=== PATIENT | male | born 1980 | race Caucasian/White ===

== ENCOUNTER 2022-11-12 17:27 | Inpatient (IN) ==
[2022-11-12] MEDS ORDERED: SODIUM CHLORIDE 0.9% 1000ML 2,000 ML IV SCH (17:45)
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
[2022-11-12 18:00] LABS: Appearance Urine Clear (Clear); Bilirubin Urine Negative (Negative); Blood Urine Negative (Negative); Color Urine Yellow; Glucose Urine UA Negative (Negative); Ketones Urine Negative (Negative); Leukocyte Esterase Urine Negative (Negative); Nitrite Urine Negative (Negative); Protein Urine Negative (Negative); Specific Gravity Urine >= 1.030 (1.000-1.030); Urobilinogen Urine Negative (Negative); pH Urine 5.5 (4.5-7.5)
[2022-11-12 18:32] LABS: Base Excess VBG -1.1 mEq/L; HCO3 VBG 24 mmol/L; Oxygen Saturation VBG 91.1 %; PCO2 VBG 42 mmHg (38-50); PO2 VBG 61 mmHg; pH VBG 7.37 (7.36-7.41)
--- NOTE | 2022-11-12 18:45 | CT Scan Report ---
CT head/brain wo con CLINICAL HISTORY: ams Technique: Contiguous axial CT images of the head were acquired from the base of the skull to the susan alyssa without intravenous contrast administration. Images were viewed in brain, subdural and bone [facility]. Automated dose lowering techniques and/or adjustment according to patient size were utilized for this exam. Comparison: None available at the time of this dictation. Findings: There is a right lentiform nucleus hypodensity which is nonspecific but may represent an acute infarc t. Imaged portions of the paranasal sinuses and mastoid air cells are clear. The orbits appear normal. There are no acute fractures of the calvaria or scalp swelling. Impression: Right lentiform nucleus hypodensity may represent acute infarct. Correlation with prior imaging, if a vailable, is recommended. No evidence of intracranial bleeding. ACT 112: Negative or not required by law. Electronically signed by: Trenton Garcia M.D. 11/12/2022 6:44 PM
[2022-11-12 18:47] LABS: Basophils # (auto) 0.03 K/uL (0-0.2); Basophils % (auto) 0.8 %; Hematocrit (blood only) 36.9 % (42.0-52.0); Hemoglobin 12.9 g/dl (14.0-18.0); Immature Granulocytes # (auto) 0.01 K/uL (0.01-0.20); Immature Granulocytes % (auto) 0.3 %; Lymphocytes # (auto) 0.62 K/uL (1.2-3.4); Lymphocytes % (auto) 15.7 %; Mean Corpuscular Hemoglobin 31.8 pg (25.0-34.0); Mean Corpuscular Volume 90.9 fL (80.0-100.0); Mean Platelet Volume 9.5 fL (9.4-12.4); Monocytes % (auto) 7.6 %; Neutrophils # (auto) 2.99 K/uL (1.40-6.50); Neutrophils % (auto) 75.6 %; Platelet Count 120 K/uL (130-400); RDW Coefficient of Variation 11.6 % (11.5-14.5); RDW Standard Deviation 38.8 fL (36.4-46.3); Red Blood Count 4.06 M/uL (4.70-6.10); White Blood Count 3.95 K/ul (4.8-10.8)
[2022-11-12 18:55] LABS: Albumin Globulin Ratio 1.4 (0.9-2); Albumin Level 3.9 gm/dl (3.4-5.0); BUN Creatinine Ratio 13.8 (10-20); Bilirubin,Total 0.5 mg/dl (0.2-1.0); Calcium 8.3 mg/dl (8.6-10.3); Creatinine Clr Calc Pharmacy 132.5 ml/min; Est GFR (African American) 125.9 ml/min; Est GFR (Non-African American) 108.6 ml/min; Globulin 2.7 gm/dl (2.5-4.0); Potassium 4.3 mmol/L (3.5-5.1); Total Protein 6.6 gm/dl (6.0-8.3)
[2022-11-12 19:00] LABS: Acetaminophen < 3 ug/ml (10-30); Salicylate < 3.0 mg/dl (3.0-30)
[2022-11-12 20:28] LABS: Amphetamines+Metham, Urine Neg (Neg); Barbiturates, Urine Neg (Neg); Benzodiazepine, Urine Neg (Neg); Cocaine, Urine Neg (Neg); MDMA (Ecstacy), Urine Neg (Neg); Methadone, Urine Neg (Neg); Opiate, Urine Neg (Neg); Phencyclidine, Urine Neg (Neg)
[2022-11-12 21:15] LABS: Magnesium 1.7 mg/dl (1.7-2.4); Phosphorus 3.5 mg/dl (2.5-4.9)
--- NOTE | 2022-11-12 22:29 | History & Physical Report ---
Date of Service November 12, 2022 Assessment & Plan (1) Alcohol withdrawal: Plan: 42 M with history of anxiety who presented to the emergency room for altered mental status, concerns for poisoning. Now admitted to the hospital for stroke evaluation, alcohol withdrawal management. Alcohol withdrawal -Patient describes heavy alcohol consumption. -Serum ethyl alcohol level 163.1 on admission. No seizure, hallucination on admission. -Serum folate, vitamin B12, TSH all wnl. -Now s/p IV thiamine 500 mg x 1, initiation of D5 LR, IV magnesium repletion. * Admit to MedSurg telemetry * Neurology consult placed. Appreciate recommendations. * IV thiamine 100 mg daily x5-7. * P.o. folate 1 mg daily * Continue D5 LR at maintenance rate * Initiate AWSS protocol using IV lorazepam * Trend daily labs Acute CVA -Altered mental status on arrival; nonsensical/tangential speech on admission. -No slurred speech, facial droop, or focal weakness on exam. -Horizontal nystagmus, bilateral patellar and biceps hyperreflexia observed. -CT head: "Right lentiform nucleus hypodensity may represent acute infarct. Correlation with prior imaging, if available, is recommended. No evidence of intracranial bleeding." -MRI brain negative for acute intracranial pathology. -MRA head/neck negative for intravascular stenosis or occlusion. -Now s/p aspirin 325 mg x 1, IV magnesium repletion x2 g on admission. * Neurology consult placed as above. Again appreciate recommendations. * Aspirin 81 mg, clopidogrel 75 mg x 21 days. Continue aspirin x3 months. * Neuro checks q4h * Trend electrolytes. Maintain magnesium >2, K+ >4 Hyponatremia -Na 128 on admission. No gap. Euvolemic on exam. Mildly symptomatic. * Serum osmolality, urine osmolality, urine sodium labs pending. * D5 LR as above. Anxiety -Chronically managed on buspirone, citalopram. * Home meds held on admission * AWSS with IV lorazepam as above Code: Full code Dispo: Med-Surg telemetry FEN/GI: D5 LR, regular diet DVT Prophylaxis: ASA/Plavix PT/OT: Consults: Neurology (2) Alcohol intoxication: (3) Acute CVA (cerebrovascular accident): (4) Anxiety disorder: History of Present Illness Primary Care Provider: DO Diogenes Isbell is a 42-year-old man with a history of anxiety and erectile dysfunction, who presented to the emergency room via ambulance for altered mental status. Patient initially stated that he thought he had been poisoned. He had stated that 2 adults and a child had showed up at his door yesterday because their car broke down. He reported inviting them in and sharing some food with him (pizza). He is unable to recall the exact time when this happened. Spoke to patient's father, who denies the encounter. Per father, patient called him describing 3 people in his apartment but that there was no one at his son's apartment. He also mentioned that his son's speech was intelligible but nonsensical. He then called an ambulance to his son's apartment, who then brought him to the hospital. In the emergency room, vitals were notable for tachycardia to the 110s-130s. WBC 3.95, platelet count 120, sodium of 128. UA was negative but urine tox positive for THC, ethyl alcohol (163.1). Head CT showed right lentiform nucleus hypodensity possibly representing an acute infarct. MRI brain showed no evidence of acute intracranial pathology, mild nonspecific white matter changes. MRA head/neck both negative for stenosis or obstruction. He received a liter bolus NS in the ED and was recommended for admission for continued management. On admission, patient is drowsy but alert and oriented. He endorses HPI but now states that he is not sure if that ever happened after talking to his father. He is unable to describe the aforementioned strangers in any detail. He reports alcohol consumption about 4-6 times a week. When asked how much he drinks per session, he replies "anywhere between a 6-pack and a 36 pack [of beer]." Last drink was today around noon. He reports a slight headache and hand tremors but denies vision changes, nausea, abdominal pain, chest pain, or melena. Allergies Allergy/AdvReac Type Severity Reaction Status Date / Time mesalamine [From [facility]] Allergy unknomn Verified 11/12/22 19:36 Home Medications Medication Instructions Recorded Confirmed Type multivitamin 1 tab PO DAILY 03/06/19 11/12/22 History tadalafil 5 mg tablet (Cialis) 5 mg PO DAILY #90 tabs 09/12/22 11/12/22 Rx buspirone 5 mg tablet 5 mg PO BID PRN anxiety #90 tabs 10/16/22 11/12/22 Rx citalopram 20 mg tablet 20 mg PO DAILY #90 tabs 10/16/22 11/12/22 Rx cyanocobalamin (vitamin B-12) 1,000 mcg PO DAILY #30 tabs 11/14/22 Rx 1,000 mcg tablet folic acid 1 mg tablet 1 mg PO DAILY #30 tabs 11/14/22 Rx thiamine HCl (vitamin B1) 100 mg 100 mg PO DAILY #30 tabs 11/14/22 Rx tablet Past Med/Surg History Medical History Acquired deviated nasal septum Acute sinusitis Acute upper respiratory infection Anxiety disorder Backache Cervicalgia Erectile dysfunction Finger injury Hypersomnolence disorder Insomnia Irritable bowel syndrome Left otitis media Nocturia Penile abnormality Shoulder pain Snoring Tick bite of hip Surgical History History of colonoscopy History of esophagogastroduodenoscopy (EGD) Family History Father Dyslipidemia Colon, diverticulosis Denies family history of Ovarian cancer Prostate cancer Breast cancer Colorectal cancer Social History Smoking Status: Never smoker Second Hand Exposure: No; Hx Alcohol Use: Yes Alcohol type: beer Hx Substance Use: Yes Last Used Substance: Hours (ago) Preferred Language: Yakut Communication Ability: Effective Hearing Ability: Normal Clinical Programmer Required: No Beliefs That Will Affect Care: None marital status: Single Current Living Situation: Alone Feels Safe at Home: Yes Seatbelt Use: always Assistive Devices: None Review of Systems Review of Systems: All systems reviewed & are unremarkable except as noted in HPI & below Physical Exam Physical Exam: General: Drowsy-appearing, alert man in no acute distress. HEENT: Normocephalic, atraumatic. Dilated pupils. EOM intact. Horizontal nyst agmus. Neck: Supple. No lymphadenopathy. Normal ROM. CV: Tachycardic, regular rhythm. Normal S1 and S2. No murmurs gallops or rubs. Respiratory: Normal respiratory effort. Lungs clear to auscultation bilaterally. No crackles, rhonchi, or wheezes. Abdomen: Soft, nondistended abdomen. No bruits heard on auscultation. No tenderness to deep palpation. No guarding or rebound. Extremities: Capillary refill <2 sec. 2+ dp equal bilaterally. No pedal edema. Neuro: Alert and oriented x3. CN II-XII intact bilaterally. 5/5 strength at UE, LE joints bilaterally. 3+ DTR at patellar, biceps tendons bilaterally. Skin: Clean, dry, and intact. No rashes, bruises, or erythema. Results & Data Results & Data Vital Signs (Past 12 Hours) Vital Signs Temp Pulse Resp BP Pulse Ox O2 Del Method 11/12/22 18:30 122 H 18 122/69 94 11/12/22 17:39 36.8 C 129 H 18 123/94 94 Room Air 11/12/22 17:32 131 H Supervising Physician Co-Signing Physician Notes Attending addendum: I have physically seen this patient, have supervised the medical residents activities, and agree with the H&P unless as otherwise noted. Assessment and Plan: Alcohol withdrawal- Alcohol level 163.1 on admission AWSS protocol with IV Ativan Thiamine 100 mg IV daily Folate 1 mg IV daily Lactated Ringer's at 100 mils an hour Serial CBC with differential, chemistry profile Alcohol cessation counseling Acute CVA- CT head with right lentiform nucleus hypodensity that may represent an acute infarct Symptoms may be due to CVA or alcohol withdrawal Ordered MRI brain which was negative for acute lesion MRA head and neck negative for significant stenosis Aspirin and clopidogrel as noted Hyponatremia- Check serum osmolality, urine osmolality and urine sodium as noted IV fluids as noted above Anxiety- Continue citalopram and buspirone IV lorazepam for AWSS protocol Remaining orders and notations as noted Resident Activity Tracking Resident Involvement: Resident Care Provided Care Provided: Adult Hospital Medicine (2) Alcohol intoxication Complication of substance-induced condition: with unspecified complication Qualified Code(s): F10.929 - Alcohol use, unspecified with intoxication, unspecified
[2022-11-12] MEDS ORDERED: THIAMINE HCL 500 MG in SODIUM CHLORIDE 0.9% 50 ML IV STA (22:31)
[2022-11-12] MEDS ORDERED: GADOBUTROL 65ML VIAL IV ONE (23:54)
--- NOTE | 2022-11-13 00:30 | Magnetic Resonance Report ---
Exam(s): MRA NECK W/WO Contrast IV Amt: 10cc gadavist EXAM: MR Angiography Neck Without and With Intravenous Contrast CLINICAL HISTORY: Reason for exam: cva. TECHNIQUE: Magnetic resonance angiography images of the neck without and with intravenous contrast. CONTRAST: Patient received 10cc gadavist of IV contrast COMPARISON: No relevant prior studies available. FINDINGS: Right common carotid artery: Unremarkable. No significant stenosis. No dissection or occlusion. Right internal carotid artery: Unremarkable. Extracranial segment is patent with no significant stenosis. No dissection or occlusion. Right external carotid artery: Unremarkable. No occlusion. Right vertebral artery: Unremarkable. No significant stenosis. No dissection or occlusion. Left common carotid artery: Unremarkable. No significant stenosis. No dissection or occlusion. Left internal carotid artery: Unremarkable. Extracranial segment is patent with no significant stenosis. No dissection or occlusion. Left external carotid artery: Unremarkable. No occlusion. Left vertebral artery: Unremarkable. No significant stenosis. No dissection or occlusion. Soft tissues: Unremarkable as visualized. CAROTID STENOSIS REFERENCE USING NASCET CRITERIA: % ICA stenosis = (1 - narrowest ICA diameter/diameter of distal cervical ICA) x 100. Mild - <50% stenosis. Moderate - 50-69% stenosis. Severe - 70-94% stenosis. Near occlusion - 95-99% stenosis. Occluded - 100% stenosis. IMPRESSION: Negative MRA of the neck. Electronically signed by: Paris Ricketts MD 11/13/22 00:29 AM
[2022-11-13] MEDS: D5W AND LACTATED RINGERS 1,000 ML IV SCH ×4 (00:33→22:01)
[2022-11-13] MEDS: MAGNESIUM SULFATE / D5W 1 GM/100 ML BAG IV SCH ×2 (00:33→02:49)
--- NOTE | 2022-11-13 00:33 | Magnetic Resonance Report ---
Exam(s): MRA HEAD Without Contrast EXAM: MR Angiography Head Without Intravenous Contrast CLINICAL HISTORY: Reason for exam: cva. TECHNIQUE: Magnetic resonance angiography images of the head without intravenous contrast. COMPARISON: No relevant prior studies available. FINDINGS: Right internal carotid artery: No acute findings. Intracranial segment is patent with no significant stenosis. No aneurysm. Right anterior cerebral artery: Unremarkable. No occlusion or significant stenosis. No aneurysm. Right middle cerebral artery: Unremarkable. No occlusion or significant stenosis. No aneurysm. Right posterior cerebral artery: Unremarkable. No occlusion or significant stenosis. No aneurysm. Right vertebral artery: Unremarkable as visualized. Left internal carotid artery: No acute findings. Intracranial segment is patent with no significant stenosis. No aneurysm. Left anterior cerebral artery: Unremarkable. No occlusion or significant stenosis. No aneurysm. Left middle cerebral artery: Unremarkable. No occlusion or significant stenosis. No aneurysm. Left posterior cerebral artery: Unremarkable. No occlusion or significant stenosis. No aneurysm. Left vertebral artery: Unremarkable as visualized. Basilar artery: Unremarkable. No occlusion or significant stenosis. No aneurysm. IMPRESSION: Negative MRA of the head. Electronically signed by: Paris Ricketts MD 11/13/22 00:32 AM
--- NOTE | 2022-11-13 00:38 | Magnetic Resonance Report ---
Exam(s): MRI HEAD W/WO Contrast IV Amt: 10cc gadavist EXAM: MR Head Without and With Intravenous Contrast CLINICAL HISTORY: Reason for exam: cva. TECHNIQUE: Magnetic resonance images of the head/brain without and with intravenous contrast in multiple planes. CONTRAST: Patient received 10cc gadavist of IV contrast COMPARISON: Comparison made to prior noncontrast head CT from November 12, 2022. FINDINGS: Brain: Mild nonspecific white matter changes. No mass. No hemorrhage. No acute infarct. Bilateral choroidal fissure cyst. Normal enhancement. Ventricles: Unremarkable. No ventriculomegaly. Bones/joints: Unremarkable. Sinuses: Chronic ethmoid sinusitis. No acute sinusitis. Mastoid air cells: Unremarkable as visualized. No mastoid effusion. Orbits: Unremarkable as visualized. IMPRESSION: No evidence of acute intracranial pathology. Mild nonspecific white matter changes. Electronically signed by: Paris Ricketts MD 11/13/22 00:37 AM
[2022-11-13] MEDS ORDERED: LORazepam 2 MG/1 ML VIAL IV PRN ×3 (00:39)
[2022-11-13] MEDS ORDERED: Ativan IV Alcohol Withdrawal--Active Protocol IV PRN (00:39)
[2022-11-13] MEDS ORDERED: LORazepam 2 MG/1 ML VIAL IV STA (01:09)
[2022-11-13] MEDS ORDERED: ASPIRIN 325 MG ECTAB PO STA (02:42)
[2022-11-13 06:18] LABS: Basophils # (auto) 0.03 K/uL (0-0.2); Basophils % (auto) 0.6 %; Eosinophils # (auto) 0.05 K/uL (0-0.50); Eosinophils % (auto) 0.9 %; Hematocrit (blood only) 37.8 % (42.0-52.0); Hemoglobin 13.3 g/dl (14.0-18.0); Immature Granulocytes # (auto) 0.02 K/uL (0.01-0.20); Immature Granulocytes % (auto) 0.4 %; Lymphocytes # (auto) 1.78 K/uL (1.2-3.4); Lymphocytes % (auto) 32.7 %; Mean Corpuscular Hemoglobin 31.8 pg (25.0-34.0); Mean Corpuscular Hgb Conc 35.2 g/dL (32.0-36.0); Mean Corpuscular Volume 90.4 fL (80.0-100.0); Mean Platelet Volume 9.7 fL (9.4-12.4); Monocytes # (auto) 0.63 K/uL (0.11-0.59); Monocytes % (auto) 11.6 %; Neutrophils # (auto) 2.94 K/uL (1.40-6.50); Neutrophils % (auto) 53.8 %; Platelet Count 134 K/uL (130-400); RDW Coefficient of Variation 11.7 % (11.5-14.5); RDW Standard Deviation 38.6 fL (36.4-46.3); Red Blood Count 4.18 M/uL (4.70-6.10); White Blood Count 5.45 K/ul (4.8-10.8)
[2022-11-13 06:28] LABS: BUN Creatinine Ratio 12.2 (10-20); Calcium 8.4 mg/dl (8.6-10.3); Chol HDL Ratio 3.4 (0-5); Creatinine Clr Calc Pharmacy 142.1 ml/min; Est GFR (Non-African American) 112.2 ml/min; Magnesium 2.7 mg/dl (1.7-2.4); Potassium 3.6 mmol/L (3.5-5.1)
--- NOTE | 2022-11-13 07:19 | Hospitalist Progress Note ---
Date of Service November 13, 2022 Assessment & Plan (1) Alcohol withdrawal: Plan: 42 M with history of anxiety who presented to the emergency room for altered mental status, concerns for poisoning. Now admitted to the hospital for stroke evaluation, alcohol withdrawal management. Alcohol withdrawal -Patient describes heavy alcohol consumption. -Serum ethyl alcohol level 163.1 on admission. No seizure, hallucination on admission. -Serum folate, vitamin B12, TSH all wnl. -Now s/p IV thiamine 500 mg x 1, initiation of D5 LR, IV magnesium repletion. * MedSurg telemetry * IV thiamine 100 mg daily x5-7. * P.o. folate 1 mg daily * Discontinue IV fluids as patient should be able to tolerate p.o. intake * Continue AWSS protocol using IV lorazepam * Trend daily labs -Likely discharge tomorrow if AWSS score remains low and consistent with today's numbers. Anxiety -Continue home medications -We will ask nurse navigator to help him find a therapist in the outpatient setting -Do not feel the patient is a harm to himself or others -May benefit from a as needed anxiety medication that is not a benzodiazepine such as hydroxyzine Acute CVA, inaccurate diagnosis, problem has been deleted -MRI of brain negative for acute intracranial pathology -Premature diagnosis of acute CVA was made when hypodensity of brain was found on CT prior to results of MRI returning. -No focal deficits noted on examination today that would be consistent with a stroke as well -Canceled neurology consult. Hyponatremia, resolved -Na 128 on admission. No gap. Euvolemic on exam. Mildly symptomatic. * Sodium at 136 this morning, consider resolved Anxiety -Chronically managed on buspirone, citalopram. * Home meds held on admission * AWSS with IV lorazepam as above Code: Full code Dispo: Med-Surg telemetry FEN/GI: regular diet DVT Prophylaxis: ASA/Plavix, low risk (2) Alcohol intoxication: (3) Anxiety disorder: Admission and Anticipated Discharge Date Admission Date: November 12, 2022 Supervising Physician Co-Signing Physician Notes I personally examined the patient and verified all dal[place] points of history and exam, discussed case, and agree with decision making with Dr Alvarenga Feeling okay. No longer hallucinating or confused. Is a bit tremulousnotes that is probably been going on for the last week or so. Alcohol intake largely in response to stress. Stress generally anxiety overall, but worse due to divorce, custody, and financial issues. Vitals noted, in general he is awake and alert pleasant no distress. HEENT normocephalic atraumatic mucous membranes moist. Breathing unlabored no accessory muscle use good effort. Skin shows no rashes no pallor or icterus. Neuro without focal deficits. Mild fine tremor. Anxiety/alcohol abuse/possible withdrawal/toxic encephalopathy (multifactorial between alcohol, marijuana, lack of sleep, stress, dehydration)seems overall to be improving. Hyponatremia which was likely a bit dehydration, and actually a bit dilution effect from beer (somewhat of a beer Poto vero mechanism) improved, although I doubt it was much of a contributor in his altered mental status since it was mild. Extensive discussion on anxiety management. Follow into tomorrow given he is somewhat tremuloushis history makes it sound like this may be more of a subacute issue, but certainly his alcohol consumption and recent hallucinationswant to ensure that he is not heading in the wrong direction with withdrawal/delirium tremens prior to discharge to home. Replace thiamine and folate, B12 is somewhat lowreplace p.o. as well. Subjective Patient seen at bedside this morning. No acute events reported overnight. Patient is alert and oriented x3 and is aware of the situation that brought him to the hospital. Remembers hallucinations as well as how he felt yesterday evening. Patient has good insight on his alcohol use and admits to having a problem for the past 2 to 3 years in relationship to COVID, divorce, and finances. He has chronic uncontrolled anxiety and after he was cut off from lorazepam, he turned to alcohol as a solution. Patient is in the contemplative stage of quitting and would like to move forward with this. Otherwise patient has no other complaints at this time, overall feeling well. Review of Systems Review of Systems: Per HPI Physical Exam Constitutional: WD/WN, vitals as above Eyes: + anicteric sclerae Neck: normal visual inspection Respiratory: normal respiratory effort, lungs clear to auscultation Cardiovascular: RRR, no murmur, no edema Gastrointestinal (Abdomen): normal bowel sounds, soft, nontender, no hepatosplenomegaly Musculoskeletal: Head/Neck/Chest: normocephalic and head atraumatic Skin: no rashes, warm and dry Neurologic: CN's II-XI intact bilaterally and moves all extremities Motor /Sensory: + tremor (resting, b/l hands) Cranial Nerves: PERRL Psychiatric: A+Ox3, euthymic affect Results & Data Results & Data Vital Signs (Past 12 Hours) Vital Signs Temp Pulse Pulse Resp BP Pulse Ox O2 Del Method 11/13/22 07:00 80 11/13/22 01:04 96 H 11/13/22 00:03 37.0 C 118 H 20 127/85 94 Room Air (2) Alcohol intoxication Complication of substance-induced condition: with unspecified complication Qualified Code(s): F10.929 - Alcohol use, unspecified with intoxication, unspecified
[2022-11-13] MEDS: ASPIRIN 81 MG ECTAB PO SCH (07:57)
[2022-11-13] MEDS: CLOPIDOGREL BISULFATE 75 MG TAB PO SCH (07:57)
[2022-11-13] MEDS: FOLIC ACID 1 MG TAB PO SCH (07:57)
[2022-11-13] MEDS: THIAMINE HCL 100 MG in SYRINGE 9 ML IV SCH (07:58)
[2022-11-13] MEDS: CYANOCOBALAMIN (B-12) 500 MCG TABLET PO SCH (10:18)
--- NOTE | 2022-11-13 17:02 | Billing Data ---
Date of Service November 13, 2022 Coding Level of Care Code 07456 SUB INP/OBS CARE MIN
[2022-11-13] MEDS ORDERED: busPIRone 5 MG TAB PO PRN (18:37)
[2022-11-14] MEDS: D5W AND LACTATED RINGERS 1,000 ML IV SCH (05:54)
--- NOTE | 2022-11-14 06:14 | Electrocardiogram Report ---
Test Reason : Blood Pressure : / mmHG Vent. Rate : 131 BPM Atrial Rate : 131 BPM P-R Int : 144 ms QRS Dur : 084 ms QT Int : 306 ms P-R-T Axes : 055 011 050 degrees QTc Int : 451 ms Poor data quality, interpretation may be adversely affected Sinus tachycardia Low voltage QRS Borderline ECG When compared with ECG of 23-APR-1998 03:45, Vent. rate has increased BY 51 BPM T wave amplitude has decreased in Anterior leads Confirmed by Tonio Perales ([id number]) on 11/14/2022 6:14:48 AM Referred By: REFERRED SELF Confirmed By:Tonio Perales
[2022-11-14 07:23] LABS: Basophils # (auto) 0.05 K/uL (0-0.2); Basophils % (auto) 0.8 %; Eosinophils # (auto) 0.07 K/uL (0-0.50); Eosinophils % (auto) 1.1 %; Hematocrit (blood only) 38.9 % (42.0-52.0); Hemoglobin 13.3 g/dl (14.0-18.0); Immature Granulocytes # (auto) 0.01 K/uL (0.01-0.20); Immature Granulocytes % (auto) 0.2 %; Lymphocytes # (auto) 1.34 K/uL (1.2-3.4); Lymphocytes % (auto) 21.5 %; Mean Corpuscular Hemoglobin 31.5 pg (25.0-34.0); Mean Corpuscular Hgb Conc 34.2 g/dL (32.0-36.0); Mean Corpuscular Volume 92.2 fL (80.0-100.0); Mean Platelet Volume 9.9 fL (9.4-12.4); Monocytes # (auto) 0.84 K/uL (0.11-0.59); Monocytes % (auto) 13.5 %; Neutrophils # (auto) 3.93 K/uL (1.40-6.50); Neutrophils % (auto) 62.9 %; Platelet Count 135 K/uL (130-400); RDW Coefficient of Variation 11.9 % (11.5-14.5); RDW Standard Deviation 40.2 fL (36.4-46.3); Red Blood Count 4.22 M/uL (4.70-6.10); White Blood Count 6.24 K/ul (4.8-10.8)
[2022-11-14 07:37] LABS: BUN Creatinine Ratio 10.6 (10-20); Calcium 8.6 mg/dl (8.6-10.3); Creatinine Clr Calc Pharmacy 123.7 ml/min; Est GFR (African American) 122.8 ml/min; Magnesium 2.2 mg/dl (1.7-2.4); Phosphorus 3.8 mg/dl (2.5-4.9); Potassium 3.8 mmol/L (3.5-5.1)
[2022-11-14] MEDS: CYANOCOBALAMIN (B-12) 500 MCG TABLET PO SCH (08:15)
[2022-11-14] MEDS: CLOPIDOGREL BISULFATE 75 MG TAB PO SCH (08:15)
[2022-11-14] MEDS: FOLIC ACID 1 MG TAB PO SCH (08:15)
[2022-11-14] MEDS: ASPIRIN 81 MG ECTAB PO SCH (08:15)
[2022-11-14] MEDS: THIAMINE HCL 100 MG in SYRINGE 9 ML IV SCH (08:15)
[2022-11-14] MEDS ORDERED: CITALOPRAM 20 MG TAB PO SCH (09:00)
--- NOTE | 2022-11-14 13:19 | Discharge Summary ---
Date of Service November 14, 2022 Admission HPI Per Admitting Provider Diogenes is a 42-year-old man with a history of anxiety and erectile dysfunction, who presented to the emergency room via ambulance for altered mental status. Patient initially stated that he thought he had been poisoned. He had stated that 2 adults and a child had showed up at his door yesterday because their car broke down. He reported inviting them in and sharing some food with him (pizza). He is unable to recall the exact time when this happened. Spoke to patient's father, who denies the encounter. Per father, patient called him describing 3 people in his apartment but that there was no one at his son's a partment. He also mentioned that his son's speech was intelligible but nonsensical. He then called an ambulance to his son's apartment, who then brought him to the hospital. In the emergency room, vitals were notable for tachycardia to the 110s-130s. WBC 3.95, platelet count 120, sodium of 128. UA was negative but urine tox positive for THC, ethyl alcohol (163.1). Head CT showed right lentiform nucleus hypodensity possibly representing an acute infarct. MRI brain showed no evidence of acute intracranial pathology, mild nonspecific white matter changes. MRA head/neck both negative for stenosis or obstruction. He received a liter bolus NS in the ED and was recommended for admission for continued management. On admission, patient is drowsy but alert and oriented. He endorses HPI but now states that he is not sure if that ever happened after talking to his father. He is unable to describe the aforementioned strangers in any detail. He reports alcohol consumption about 4-6 times a week. When asked how much he drinks per session, he replies "anywhere between a 6-pack and a 36 pack [of beer]." Last drink was today around noon. He reports a slight headache and hand tremors but denies vision changes, nausea, abdominal pain, chest pain, or melena. Principal Diagnosis Alcohol intoxication Discharge Exam Constitutional WD/WN, vitals as above Eyes + anicteric sclerae Neck normal visual inspection Respiratory normal respiratory effort, lungs clear to auscultation Cardiovascular RRR, no murmur, no edema Gastrointestinal (Abdomen) normal bowel sounds, soft, nontender, no hepatosplenomegaly Musculoskeletal Head/Neck/Chest: normocephalic and head atraumatic Skin no rashes, warm and dry Neurologic CN's II-XI intact bilaterally and moves all extremities Cranial Nerves: PERRL Psychiatric A+Ox3, euthymic affect Discharge Data Allergies Allergy/AdvReac Type Severity Reaction Status Date / Time mesalamine [From [facility]] Allergy unknomn Verified 11/12/22 19:36 Consultations 11/12/22 19:19 ED Decision to Admit Stat Ordered Studies 11/12/22 17:39 CT head/brain wo con Stat 11/12/22 20:14 MR angio neck wo/w con Stat MRI Angio Brain [MR angio head wo con] Stat MRI Brain [MR brain wo/w con] Stat Hospital Course (1) Alcohol withdrawal: 42 M with history of anxiety who presented to the emergency room for altered mental status, concerns for poisoning. Now admitted to the hospital for stroke evaluation, alcohol withdrawal management. Alcohol Dependence/ Use Disorder Patient came in with concerns for hallucinations and altered mental status. It is found in the ED that his urine drug screen was positive for both alcohol and THC for which she smokes cannabis daily. In addition he takes Sudafed daily for chronic sinusitis. It is our belief that the patient had a perfect storm of these 3 medications that caused a significant change in his mental status. After resting and receiving appropriate fluid resuscitation, patient responded very well and returned to baseline. Initially on imaging done in the ED, a CT of the head did note a hypodense area which was sequentially followed by an MRI which was negative. This indicates that the patient did not have a stroke. The biggest concern with the patient is his alcohol consumption for which she is consumed 6-16 drinks per week for the past 2 to 3 years qualifying for alcohol use disorder. Patient is understanding of his condition realizes that his anxiety is a big part of dependence on alcohol. We did offer the patient oral naltrexone, however, patient wished to discuss this further with his PCP. Otherwise his electrolytes were repleted as necessary and his folate and thiamine were replenished in the inpatient setting. Patient required no benzodiazepines for alcohol withdrawal. After observing for 24 hours, we felt it was safe for him to be discharged home. -Patient describes heavy alcohol consumption. -Serum ethyl alcohol level 163.1 on admission. No seizure, hallucination on admission. -Serum folate, vitamin B12, TSH all wnl. -Now s/p IV thiamine 500 mg x 1, initiation of D5 LR, IV magnesium repletion. -D/C home Anxiety -Continue home medications -We will ask nurse navigator to help him find a therapist in the outpatient setting -Do not feel the patient is a harm to himself or others -May benefit from a as needed anxiety medication that is not a benzodiazepine such as hydroxyzine Acute CVA, inaccurate diagnosis, problem has been deleted -MRI of brain negative for acute intracranial pathology -Premature diagnosis of acute CVA was made when hypodensity of brain was found on CT prior to results of MRI returning. -No focal deficits noted on examination today that would be consistent with a stroke as well -Canceled neurology consult. Hyponatremia, resolved -Na 128 on admission. No gap. Euvolemic on exam. Mildly symptomatic. * Sodium at 136 the following day, consider resolved Anxiety -Chronically managed on buspirone, citalopram. Code: Full code Dispo: D/C home FEN/GI: regular diet (2) Alcohol intoxication: (3) Anxiety disorder: Total Time Total Time Spent Total Time Spent (In Minutes): <30 Discharge Plan Discharge Items Patient Disposition: Home - Self-Care Reason For Visit: ALTERED MENTAL STATUS Discharge Diagnosis: Alcohol intoxication Activity: Per Instructions section Non-emergency contact: Primary Care Provider Call non-emergency contact if: you have any medication questions and your symptoms worsen Follow-up/Referrals: Cash Pete, [Primary Care Provider] - 11/22/22 1:00 pm Diet: Regular Addtl Attending Provider Instructions: You were seen in the hospital for altered mental status and hallucinations. While you are here, you were tested for drugs and alcohol and it showed that your alcohol level was high as well as showing to be positive for marijuana. Additionally it was noted that you are taking some [id number]-[id number] medications including Sudafed. It is our belief that you had the perfect combination of alcohol plus other drugs that made you experience the symptoms. Additionally you had a brain CT that did show a small "hypodense region". For this reason, an MRI was ordered which is a much more sensitive and specific testing in regards to stroke and it did not show an acute abnormality indicating you did not have a stroke. You were observed for 24 hours in the hospital to evaluate for any possible alcohol withdrawal and your symptoms actually improved rather than getting worse. For this reason we feel it is safe for you to be discharged home. We had a discussion in regard to using naltrexone as a means to help your alcohol use. I encourage you to continue this conversation with your primary care provider in the outpatient setting. I will provide a printout with information regarding this drug and how it may help you with your alcohol use disorder. I strongly encourage you to limit your alcohol intake as well as utilization of Sudafed. A better alternative for the Sudafed for sinus symptoms include intranasal steroid such as Flonase and antihistamines. Discuss this further with your primary care provider. Lastly, I will get in touch with the nurse navigator who will help you find a therapist in the outpatient setting. I believe that this will provide you with the most benefit and discontinuing alcohol use as well as deal with your anxiety in the long run. Is been a pleasure to be part of your care and we wish you the best in both your health and recovery. Pending Studies at Discharge: No Stand-Alone Forms: [facility], Smoking Cessation Medications and DC Order Prescriptions: Continued citalopram 20 mg tablet 20 mg PO DAILY Qty: 90 3RF buspirone 5 mg tablet 5 mg PO BID PRN (Reason: anxiety) Qty: 90 3RF tadalafil [Cialis] 5 mg tablet 5 mg PO DAILY Qty: 90 3RF multivitamin tablet 1 tab PO DAILY Discharge Orders: Discharge Order (Routine); Ordered 11/14/22 Ordered By: Russ Colón/Other Patient Handouts: Social Drinking vs Problem Drinking, Alcoholism Resources, Signs of Addiction: Social Use, Alcohol Withdrawal: What to Expect Admission Data Admit Date/Time: 11/12/22 20:54 Attending Provider: Hector Moody Admit Provider: Patrick Inman Primary Care Provider: Cash Pete Other Providers: Jesse Ocasio Other Interventions: Discharge Summary Assessment (RN) Last Done: 11/14/22 13:55 Supervising Physician Co-Signing Physician Notes I personally examined the patient and verified all dalton points of history and exam, discussed case, and agree with decision making with Dr Alvarenga Feels up to going home. Tremors in the samenot worse, no tachycardia, no sweats. Anxiety is at his current baseline. Vitals noted, in general he is awake and alert pleasant no distress. HEENT normocephalic atraumatic mucous membranes moist. Breathing unlabored no accessory muscle use good effort. Skin shows no rashes no pallor or icterus. Neuro without focal deficits. Mild fine tremor. Anxiety/alcohol abuse/possible withdrawal/toxic encephalopathy (multifactorial between alcohol, marijuana, lack of sleep, stress, dehydration)seems overall to be improving. Hyponatremia which was likely a bit dehydration, and actually a bit dilution effect from beer (somewhat of a beer Poto vero mechanism) improved, although I doubt it was much of a contributor in his altered mental status since it was mild. Extensive discussion on anxiety management again. Safe/stable for home with multimodal outpatient management. Replace thiamine and folate, B12 is somewhat lowreplace p.o. as well.
--- NOTE | 2022-11-14 19:22 | Billing Data ---
Date of Service November 14, 2022 Coding Level of Care Code 55872 IN/OBS DISCH 30 MIN/LESS
--- NOTE | 2022-11-15 05:48 | Billing Data ---
Date of Service November 15, 2022 Coding Level of Care Code 99196 INT INP/OBS CARE
[2022-11-16 08:56] LABS: Marijuana Quant, GCMS Urine >5000 ng/mL (<5)
== END 2022-11-14 14:25 | disposition home or self-care (01) | DRG 896 ==
LOC: ED 17:27 → 2W 20:54 → SUATTDRO 20:54 → 2W 23:08